=== PATIENT | male | born 1950 | race Hispanic/Latino ===

== ENCOUNTER → 2025-05-31 | Outpatient (CLI) | payer OTHER ==
--- NOTE | 2025-06-01 17:03 | HMCIMG ---
EXAM: CT Head Without IV Contrast CLINICAL HISTORY: Bilateral sensorineural hearing loss TECHNIQUE: Axial computed tomography images of the head/brain obtained without intravenous contrast. Dose length product (DLP): 970 mGy???cm. COMPARISON: None provided. FINDINGS: BRAIN: Diffuse cerebral volume loss noted with prominence of sulci and ventricles. Patchy hypodensities seen in the bilateral fronto-parietal periventricular and deep white matter, consistent with chronic small vessel ischaemic changes. No evidence of acute haemorrhage, mass lesion, or acute territorial infarct. No midline shift or extra-axial collections. VENTRICLES: Mild prominence secondary to volume loss. No obstructive hydrocephalus. ORBITS: Orbits appear unremarkable. SINUSES AND MASTOIDS: Paranasal sinuses and mastoid air cells are clear. BONES: Calvarium intact. No fracture or lytic lesion. SOFT TISSUES: Unremarkable. IMPRESSION: * Diffuse cerebral volume loss. * Chronic small vessel ischaemic changes in bilateral fronto-parietal white matter. * No acute intracranial haemorrhage, infarct, or mass lesion. /[place]
== END | disposition home or self-care (01) ==
LOC: RAH 10:34
PROVIDERS: ATTEND Family Medicine
DX: I67.82 Cerebral ischemia (principal); H90.3 Sensorineural hearing loss, bilateral
CPT/HCPCS: 70450